=== PATIENT | female | born 1980 ===

== ENCOUNTER 2024-11-09 06:31 | Day surgery (SDC) | payer BC, SELFPAY ==
[2024-11-09 07:28] LABS: Glucose - Point of Care 102 mg/dl (70-99)
== END 2024-11-09 08:35 | disposition home or self-care (01) ==
LOC: GI 06:31
PROVIDERS: ATTENDING PHYSICIAN Internal Medicine
DX: Z12.11 Encounter for screening for malignant neoplasm of colon (principal); K63.5 Polyp of colon; K57.30 Diverticulosis of large intestine without perforation or abscess without bleeding; K64.8 Other hemorrhoids
CPT/HCPCS: 45385; 45380; 82962; 88305